=== PATIENT | male | born 2000 | race Native Hawaiian/Other Pacific Islander ===

== ENCOUNTER 2022-05-09 05:12 | Emergency (ER) | payer SELFPAY ==
[~2022-05-09] VITALS: Ht 167.6 cm; Wt 97.5 kg
[2022-05-09 05:15] VITALS: BP 167/97
--- NOTE | 2022-05-09 05:15 | NUR ---
BIB [facility] TAKEN TO [facility]
--- NOTE | 2022-05-09 05:18 | NUR ---
Patient being evaluated by physician
--- NOTE | 2022-05-09 06:02 | NUR ---
DR. NIEVES EVALUATING PT
--- NOTE | 2022-05-09 06:25 | NUR ---
PATIENT BIB [facility]ICE DEPT. PATIENT EXAMINED BY DR. NIEVES. PATIENT MEDICALLY CLEARED AND RELEASED IN CUSTODY IN STABLE CONDITION. ORIGINAL PRE-BOOK FORM GIVEN TO OFFICER ANTONIA, #[id number]
== END 2022-05-09 06:25 ==
LOC: MED 05:12
DX: Z02.89 Encounter for other administrative examinations (principal); V49.88XA Car occupant (driver) (passenger) injured in other specified transport accidents, initial encounter; Y93.89 Activity, other specified; Y92.89 Other specified places as the place of occurrence of the external cause; Y99.8 Other external cause status
CPT/HCPCS: 99283